=== PATIENT | female | born 2000 | race Caucasian/White ===

== ENCOUNTER 2018-08-23 14:00 | Emergency (ER) | payer SELFPAY ==
--- NOTE | 2018-08-23 14:35 | PHYS DOC ---
Past History Past Medical History: Depression, Other Past Surgical History: Other Alcohol Use: None Drug Use: None Adult General Chief Complaint Chief Complaint: COUGH HPI HPI 17-year-old female presents with cough and sore throat. Patient has had intermittent cough for last 2 weeks. She has had a worsening sore throat last couple of days. It is very painful for her to swallow. She is also coughing quite a bit. She tells me that she is unable to take a deep breath without coughing. She denies fever at home. She has tried multiple [id number] medications to help with the cough and sore throat. Nothing seems to help. Review of Systems Review of Systems Constitutional: Denies fever or chills [] Eyes: Denies change in visual acuity, redness, or eye pain [] HENT: Sore throat[] Respiratory: Nonproductive cough[] Cardiovascular: No additional information not addressed in HPI [] GI: Denies abdominal pain, nausea, vomiting, bloody stools or diarrhea [] : Denies dysuria or hematuria [] Musculoskeletal: Denies back pain or joint pain [] Integument: Denies rash or skin lesions [] Neurologic: Denies headache, focal weakness or sensory changes [] Endocrine: Denies polyuria or polydipsia [] All other systems were reviewed and found to be within normal limits, except as documented in this note. Physical Exam Physical Exam Constitutional: Well developed, obese, well nourished, no acute distress, non- toxic appearance. [] HENT: Normocephalic, atraumatic, bilateral external ears normal, oropharynx erythematous without exudate, enlarged erythematous tonsils, nose normal. [] Eyes: PERRLA, EOMI, conjunctiva normal, no discharge. [] Neck: Anterior cervical lymphadenopathy bilaterally[] Cardiovascular:Heart rate regular rhythm, no murmur [] Lungs & Thorax: Bilateral breath sounds clear to auscultation, rapid breathing [] Abdomen: Bowel sounds normal, soft, no tenderness, no masses, no pulsatile masses. [] Skin: Warm, dry, no erythema, no rash. [] Back: No tenderness, no CVA tenderness. [] Extremities: No tenderness, no cyanosis, no clubbing, ROM intact, no edema. [] Neurologic: Alert and oriented X 3, normal motor function, normal sensory function, no focal deficits noted. [] Psychologic: Affect anxious, judgement normal, mood normal. [] Current Patient Data Vital Signs Vital Signs Date Time Temp Pulse Resp B/P (MAP) Pulse Ox O2 Delivery O2 Flow Rate FiO2 08/23/18 14:23 98.6 118 32 98 Room Air EKG EKG [] Radiology/Procedures Radiology/Procedures [] Impressions: PA and lateral chest radiograph. History: Cough, shortness of breath. Comparison: None. Findings: Cardiomediastinal silhouette is within normal limits for size. Bilateral lung arreola appear clear without evidence of infiltrate, effusion, or pneumothorax. Impression: 1. No acute cardiopulmonary process. Electronically signed by: Aure Tidwell MD (08/23/2018 2:55 PM) [place] [id number] DICTATED AND SIGNED BY: AURE TIDWELL MD DATE: 08/23/18 1453 CC: JARON VELASCO DO; [facility] Course & Med Decision Making Course & Med Decision Making Pertinent Labs and Imaging studies reviewed. (See chart for details) Patient's strep test is negative. Her chest x-ray is negative for acute findings. I believe she has a viral URI with cough. I will discharge her with a prescription for Tessalon Perles. [] Dragon Disclaimer Dragon Disclaimer This electronic medical record was generated, in whole or in part, using a voice recognition dictation system. Departure Departure: Referrals: SANDRINE ROD (PCP) JARON VELASCO DO Aug 23, 2018 14:34
--- NOTE | 2018-08-23 14:58 | RAD ---
PA and lateral chest radiograph. History: Cough, shortness of breath. Comparison: None. Findings: Cardiomediastinal silhouette is within normal limits for size. Bilateral lung arreola appear clear without evidence of infiltrate, effusion, or pneumothorax. Impression: 1. No acute cardiopulmonary process. Electronically signed by: Alejandro Garcia MD (08/23/2018 2:55 PM) [place] [id number]
[2018-08-23] MEDS: BENZONATATE 100 MG CAPSULE. PO ONE (15:23)
[2018-08-23] MEDS ORDERED: BENZ100C PO (15:46)
[2018-08-23] MEDS: DEXAMETHASONE SOD PHOS 10 MG/ML VIAL IM ONE (16:03)
[2018-08-23 19:18] VITALS: BP 132/84
== END 2018-08-23 16:20 | disposition home or self-care (01) ==
LOC: ER 14:00
DX: J02.9 Acute pharyngitis, unspecified (principal); F32.9 Major depressive disorder, single episode, unspecified
CPT/HCPCS: 71046; 87070; 87880; 96372; 99284; J1100

== ENCOUNTER 2019-01-03 10:43 | Emergency (ER) | payer SELFPAY ==
[~2019-01-03] VITALS: Ht 167.6 cm; Wt 72.6 kg
[~2019-01-03 10:43] MED LIST: BENZ100C PO
--- NOTE | 2019-01-03 11:08 | PHYS DOC ---
Past History Past Medical History: Depression, Other Additional Past Medical Histor: "eye issues" Past Surgical History: Other Smoking: Cigarettes, Less than 1pk/day Alcohol Use: None Drug Use: None Adult General Chief Complaint Chief Complaint: COUGH HPI HPI Patient is a 18-year-old female who presents with cough and sore throat for the past week. She notes that she's having some bilateral rib pain especially with coughing. No PE risk factors. Patient has been exposed to strep pharyngitis. There has been some nasal congestion. Symptoms do get worse with laying down at night. There have been several episodes of cough-induced vomiting. No blood in the emesis, no blood in the sputum. No fever.[] Review of Systems Review of Systems Constitutional: Denies fever or chills [] Eyes: Denies change in visual acuity, redness, or eye pain [] HENT: See history of present illness[] Respiratory: Denies shortness of breath [] Cardiovascular: No palpitations, no worse with exercise[] GI: Denies abdominal pain, bloody stools or diarrhea [] : Denies dysuria or hematuria [] Musculoskeletal: Denies back pain or joint pain [] Integument: Denies rash or skin lesions [] Neurologic: Denies headache, focal weakness or sensory changes [] Endocrine: Denies polyuria or polydipsia [] All other systems were reviewed and found to be within normal limits, except as documented in this note. Allergies Allergies Allergies Coded Allergies Type Severity Reaction Last Updated Verified No Known Drug Allergies 08/23/18 No Physical Exam Physical Exam Constitutional: Well developed, well nourished, no acute distress, non-toxic appearance. [] HENT: Normocephalic, atraumatic, bilateral external ears normal, oropharynx moist, no oral exudates, nose normal. [] Eyes: PERRLA, EOMI, conjunctiva normal, no discharge. [] Neck: Normal range of motion, no tenderness, supple, no stridor. [] Cardiovascular:Heart rate regular rhythm, no murmur [] Lungs & Thorax: Bilateral breath sounds clear to auscultation, no rib crepitus , no step-off, no flail segments. [] Abdomen: Bowel sounds normal, soft, no tenderness, no masses, no pulsatile masses. [] Skin: Warm, dry, no erythema, no rash. [] Back: No tenderness, no CVA tenderness. [] Extremities: No tenderness, no cyanosis, no clubbing, ROM intact, no edema. [] Neurologic: Alert and oriented X 3, normal motor function, normal sensory function, no focal deficits noted. [] Psychologic: Affect normal, judgement normal, mood normal. [] Current Patient Data Vital Signs Vital Signs Date Time Temp Pulse Resp B/P (MAP) Pulse Ox O2 Delivery O2 Flow Rate FiO2 01/03/19 10:50 98.7 103 20 97 Room Air EKG EKG [] Radiology/Procedures Radiology/Procedures AP and Lateral Views of the Chest 01/03/2019 12:04 PM Indication: PRODUCTIVE COUGH X 1 WEEK Comparison: 2 views of the chest July 23, 2018. Findings: There is no focal consolidation or infiltrate identified. The cardiomediastinal silhouette is within normal limits. There is no evidence of pneumothorax or pleural effusion. No acute osseous abnormalities are identified. Impression: No evidence of acute cardiopulmonary process.[] Course & Med Decision Making Course & Med Decision Making Pertinent Labs and Imaging studies reviewed. (See chart for details) ED course: Patient arrived, was placed in bed, and tolerated exam well. After the return of lab and imaging studies, these were discussed with the patient who voiced understanding. All questions were answered. Patient was discharged in improved condition. Medical decision making: There is no evidence of pneumonia, pneumothorax, strep , nor other significant illness.[] Dragon Disclaimer Dragon Disclaimer This electronic medical record was generated, in whole or in part, using a voice recognition dictation system. Departure Departure: Impression: Primary Impression: Cough Disposition: HOME, SELF-CARE Condition: IMPROVED Referrals: [facility]PSANDRINE (PCP) Patient Instructions: Cough, Adult Additional Instructions: Drink plenty of fluids. Follow-up with your primary care physician in 2 days. If you do not have a primary care physician a list of local clinics will be provided for you. Return to the ER if worsening discomfort, difficulty breathing , unable to tolerate liquids, or any other concerns. Scripts D-Methorphan Hb/Prometh Hcl (PROMETHAZINE-DM SYRUP) 118 Ml Syrup 5 ML PO PRN Q4HRS for cough/congestion, #120 ML Prov: ELLIOTT POOLE DO 01/03/19 ELLIOTT POOLE DO Jan 03, 2019 11:08
--- NOTE | 2019-01-03 11:15 | RAD ---
AP and Lateral Views of the Chest 01/03/2019 12:04 PM Indication: PRODUCTIVE COUGH X 1 WEEK Comparison: 2 views of the chest July 23, 2018. Findings: There is no focal consolidation or infiltrate identified. The cardiomediastinal silhouette is within normal limits. There is no evidence of pneumothorax or pleural effusion. No acute osseous abnormalities are identified. Impression: No evidence of acute cardiopulmonary process. Electronically signed by: Jonatan Anna MD (01/03/2019 11:12 AM) [id number]
[2019-01-03] MEDS ORDERED: D-ME118S2 PO (11:29)
[2019-01-03 11:35] VITALS: BP 114/74
== END 2019-01-03 11:37 | disposition home or self-care (01) ==
LOC: ER 10:43
DX: R05 Cough (principal); J02.9 Acute pharyngitis, unspecified; R07.81 Pleurodynia; F17.210 Nicotine dependence, cigarettes, uncomplicated; F32.9 Major depressive disorder, single episode, unspecified
CPT/HCPCS: 71046; 81025; 87070; 87880; 99284